=== PATIENT | female | born 1975 | race Caucasian/White ===

== ENCOUNTER 2016-12-09 07:49 | Day surgery (SDC) | payer OTHER ==
[~2016-12-09 07:49] MED LIST: RINGERS SOLUTION,LACTATED 1,000 ML IV PRN
[2016-12-09 08:17] LABS: Hematocrit 37.7 % (37.0-47.0); Hemoglobin 12.4 gm/dL (12.5-16.0); Mean Cell Volume 90.2 fl (78-100); Mean Corpuscular Hemoglobin 29.7 pg (27-31); Mean Corpuscular Hgb Conc 32.9 g/dl (32-36); Neutrophil # 4.2 K/mm3 (1.3-6.0); Neutrophil % 69.9 % (42-75.0); Platelet Count 415 K/mm3 (150-450); Red Blood Count 4.18 M/mm3 (4.2-5.4); Red Cell Distribution Width 12.5 % (11.5-14.0); White Blood Count 6.1 K/mm3 (4.0-10.5)
--- NOTE | 2016-12-09 09:40 | OR ---
Operative Report - Dictated Report Narrative: Operative Report 12/09/2016 Hysteroscopy Dilatation and Curettage Preoperative Diagnosis: Menometrorrhagia Postoperative Diagnosis: Menometrorrhagia Procedure: Hysteroscopy Dilatation and Curettage Surgeon: Kristal Colon M.D. Anesthesia: Phil Henley CRNA, IV sedation Findings: Uterine sound was 8 cm. It was difficult to completely assess the lining of the uterus as she started her period this morning. However, there was no endometrial polyp or submucosal fibroid visualized on the endometrium. Fluids: 200 ml EBL: Minimal Drains: None Complications: None Condition: Stable Pathology: Endometrial curettings Procedure: The patient was taken to the operating room with IV fluids running. She was placed in the dorsal lithotomy position after anesthesia was induced. A bivalve speculum was placed in the vagina. The anterior lip of the cervix was grasped with a single-tooth tenaculum. 2 mm hysteroscope was used to guide down the endocervical canal after uterine sound was not easily passed. The cervix was dilated with Bradley dilators. Uterine sound was passed into the endometrial cavity with ease. Uterine sound was 8 cm. The hysteroscope was introduced into the endometrial cavity. The cavity was distended with normal saline. [place] were visualized bilaterally. The patient started her period today and visualized was decreased but there was no clear evidence of submucosal fibroid or endometrial polyp. The hysteroscope was removed. The cavity was sharply curetted without difficulty. The hysteroscope was once again introduced into the cavity. The cavity was completely curetted. The hysteroscope was removed. The single-tooth tenaculum was removed. Sites were hemostatic. The speculum was removed from the vagina. Sponge counts were correct 2. The patient tolerated the procedure well.
[2016-12-09] MEDS ORDERED: IBUPROFEN 600 MG TABLET PO PRN (09:54)
[2016-12-09] MEDS ORDERED: oxyCODONE HCL/ACETAMINOPHEN 1 TAB TABLET PO PRN (09:55)
[2016-12-09 11:05] VITALS: BP 106/68
== END 2016-12-09 07:50 | disposition home or self-care (01) ==
LOC: AMB 07:49
PROVIDERS: ATTEND Obstetrics & Gynecology
PROC: 0UDB8ZX Extraction of Endometrium, Via Natural or Artificial Opening Endoscopic, Diagnostic (ICD-10-PCS; principal; 2016-12-09 09:00)
DX: N92.1 Excessive and frequent menstruation with irregular cycle (principal); K21.9 Gastro-esophageal reflux disease without esophagitis; Z87.891 Personal history of nicotine dependence; Z68.26 Body mass index [BMI] 26.0-26.9, adult

== ENCOUNTER 2017-02-04 06:49 | Day surgery (SDC) | payer OTHER ==
[~2017-02-04 06:49] MED LIST changes: +CLINDAMYCIN PHOSPHATE 600 MG in DEXTROSE 5 % IN WATER 100 ML IV PRN; +GENTAMICIN SULFATE 100 MG in DEXTROSE 5 % IN WATER 100 ML IV PRN; +ceFAZolin SODIUM 2 GM in DEXTROSE 5 % IN WATER 50 ML IV PRN
[2017-02-04 07:20] LABS: Hematocrit 34.4 % (37.0-47.0); Mean Cell Volume 89.1 fl (78-100); Mean Corpuscular Hemoglobin 28.5 pg (27-31); Mean Platelet Volume 8.7 fl (6.0-9.5); Neutrophil % 58.5 % (42-75.0); Platelet Count 444 K/mm3 (150-450); Red Blood Count 3.86 M/mm3 (4.2-5.4); Red Cell Distribution Width 13.7 % (11.5-14.0); White Blood Count 3.4 K/mm3 (4.0-10.5)
[2017-02-04] MEDS ORDERED: RINGERS SOLUTION,LACTATED 1,000 ML IV ONE ×3 (07:35→10:38)
[2017-02-04 08:00] LABS: Albumin * 3.7 gm/dl (3.4-5.0); Anion Gap 11.4 mmol/L (6.8-13.8); BUN/Creatinine Ratio 9.1 (9.0-21.6); Bilirubin, Total 0.3 mg/dL (0.0-1.1); Ca. Corrected For Albumin 8.6 mg/dL (8.4-10.2); Calcium * 8.7 mg/dL (7.9-10.9); Carbon Dioxide 28.3 mmol/L (24-32.6); Potassium 3.7 mmol/L (3.4-4.6); Total Protein 7.2 gm/dL (6.2-8.2)
[2017-02-04] MEDS ORDERED: BUPIVACAINE HCL 50 ML VIAL IJ ONE (08:20)
[2017-02-04] MEDS ORDERED: RINGERS SOLUTION,LACTATED 1,000 ML IV PRN (11:44)
[2017-02-04] MEDS ORDERED: IBUPROFEN 800 MG TABLET PO ONE ×3 (11:44→13:30)
[2017-02-04] MEDS ORDERED: HYDROcodone/ACETAMINOPHEN 1 EACH TABLET PO PRN (11:45)
--- NOTE | 2017-02-04 11:57 | OR ---
Operative Report - Dictated Report Narrative: DATE OF PROCEDURE: 02/04/2017 PROCEDURE: 1. Total laparoscopic hysterectomy, bilateral salpingectomy 2. Lysis of adhesion (60 min) 3. Diagnostic cystoscopy. ANESTHESIA: General, endotracheal intubation. PREOPERATIVE DIAGNOSES: 1. Menometrorrhagia 2. Pelvic pain 3. Prior x 2 POSTOPERATIVE DIAGNOSES: 1. Menometrorrhagia 2. Pelvic pain 3. Prior x 2 4. Pelvic adhesions SURGEON: Tammy Weems M.D. QUANTITY SURVEYOR: Bing Cotton FINDINGS: 1. Retroverted uterus, normal size, dense adhesions with bladder at prior c/s area in the lower uterine segment. 2. Evidence of prior tubal ligations, both ovaries and tubes appeared normal. 3. There were dense adhesions in the lower uterine segment with the bladder and the nearby broad ligaments. 4. On cystoscopy, the bladder appeared intact and bilateral ureteral jets were seen. SPECIMENS: Uterus, cervix, and both tubes (removed in one piece) DRAINS: None. URINE OUTPUT: 25 ml BLOOD LOSS: 25 ml INTRAOPARATIVE IV FLUIDS: 1800 ml COMPLICATIONS: None. DESCRIPTION OF PROCEDURE: The patient consented to the operation and was taken to the operating room. She was placed on the operating table supine. SCDs were placed on her lower extremities. General anesthesia was induced. Clindamycin 600 mg and gentamicin (1.5 mg/kg) were given by IV prior to anesthesia induction. She was repositioned in the dorsal lithotomy position. Her right arm was tucked at her side under the drape. Exam under anesthesia revealed a normal retroverted uterus with no adnexal mass. The abdomen was prepped with Chloraprep and the vagina was prepped with Betadine. She was draped in the usual sterile fashion. A time-out procedure was conducted to confirm the correct patient for the correct procedure. After time-out, a Stakr catheter was placed into the bladder. A bivalve speculum was placed into the vagina. The vagina and the cervix were prepped with Betadine one more time. The anterior cervix was grasped with a single-tooth tenaculum. The uterus was sounded to 8 cm. A large VCare uterine manipulator was inserted into the uterine cavity. The balloon was inflated with 5 cc of air. The single-tooth tenaculum was removed. [place] speculum was removed. The upper VCare cup was advanced into the vagina to hug the cervix. The lower VCare cup was advanced into the vagina to align with the upper VCare cup and to provide pneumoperitoneum for the procedure. The lower VCare cup was fastened to the uterine manipulator. The surgeon then changed gloves and attention was paid to the abdomen. A small vertical incision was made at the lower edge of the umbilicus. A Veress needle was inserted into the abdominal cavity. Intraabdominal placement was confirmed with a saline drop test and with low entry pressure of 2 mmHg. The abdomen was insufflated with CO2 gas to an intraabdominal pressure of 15 mmHg. The Veress needle was removed. A 5 mm trocar with the laparoscope was inserted through the umbilicus incision into the abdomen. Intraabdominal placement was confirmed with the laparoscope. Survey of the entry site revealed no trauma to the underlying structures. Survey of the upper abdomen was unremarkable. The patient was then placed in Trendelenburg position. Three 5 mm trocars were placed in the lower abdomen. Both left lower quadrant trocar and right lower quadrant trocars (5 mm) were placed at a place 2 cm above and 2 cm medial to the anterior superior iliac spine to avoid vessels and nerves. A third suprapubic trocar (5 mm) was placed in the midline. All trocars were placed under the direct visualization of the laparoscope. Survey of the pelvis revealed the findings noted above. Attention was now turned to the left side. The left fallopian tube was elevated. The mesosalpinx was divided with the Thunderbeat. The division was carried to the cornual region. The uteroovarian ligament was divided with the Thunderbeat and the division was carried on the broad ligament to the round ligament towards the lower uterine segment. The course of the left ureter was not identified, but believed to be away from the surgical field. The broad ligament incision was into the anterior leaf and the posterior leaf. Anterior leaf of the broad ligament was dissected towards the bladder uterine reflection. The posterior leaf of the broad ligament was dissected towards the uterosacral ligament. Dense adhesions were encountered near the uterine vessel and in the lower uterine segment. These were dissected carefully. The left uterine vessel was isolated and divided with the Thunderbeat. The lower uterine segment was dissected to free the bladder down. There were thick fibrotic tissues over the bladder. The cardinal ligament complex was divided with the Thunderbeat to the level of vaginal cervical junction. Attention was now turned to the right side. The right fallopian tube was elevated. The mesosalpinx was divided with the Thunderbeat. The division was carried to the cornual region. The uteroovarian ligament was divided with the Thunderbeat and the division was carried on the broad ligament to the round ligament towards the lower uterine segment. The course of the right ureter was identified and protected. The broad ligament incision was into the anterior leaf and the posterior leaf. The anterior leaf of the broad ligament was dissected towards the bladder uterine reflection and to meet with the opposite dissection point at the midline. The posterior leaf of the broad ligament was dissected towards the uterosacral ligament. The right uterine vessel was isolated, and divided with the Thunderbeat. The cardinal ligament complex was divided with the Thunderbeat to the level of vaginal cervical junction. The vaginal fornix was seen well through the VCare cup. The Thunderbeat was used to make an anterior colpotomy over the VCare cup groove. Entry into the vagina was without complications. A circumferential incision was made along the vaginal cervical junction using the VCare cup groove as a guide. Bilateral uterosacral ligament was divided. The cervix was completely divided from the vagina. The surgeon moved to the vaginal area to retrieve the specimen. The VCare uterine manipulator was removed. The cervix with the uterus and both tubes were removed through the vagina in one piece. The vagina was packed with 2 moist laps to keep the pneumoperitoneum. The surgeon then changed gloves and attention was paid back to the abdomen. The pelvis was thoroughly irrigated with saline. The vaginal opening was closed with 0 Vicryl Endoknot suture in an interrupted fashion using intracorporeal suturing technique and extracorporeal knot tying. The uterosacral ligament at each side was sutured to the vaginal cuff corner for cuff support. The bladder paritoneum was sutured over the vaginal cuff for adhesion prevention. The pelvis was irrigated with saline. Extra fluid was suctioned out from the abdomen and pelvis. There was hemostasis in all vessel pedicles. The patient was taken out of Trendelenburg Three lower abdominal trocars were removed. The abdomen was deflated. The trocar at the umbilicus was removed with the laparoscope. The skin incision was closed with 4-0 Monocryl suture and was covered with Steri-Strips. The incision was infiltrated with 2 to 3 cc of 0.25% Marcaine for post op pain management. Next, a diagnostic cystoscopy was performed. Vaginal packing was removed and the Stark catheter was removed. A 30-degree cystoscope was introduced through the urethra into the bladder. Exam of the bladder revealed the bladder was intact. There were urine jets coming out from the left as well as the right ureteral orifice, confirming the integrity of ureters. The cystoscope was removed. The Stark catheter was not replaced. The patient tolerated the procedure well. All counts were correct and the patient was taken to the recovery room in stable condition. Tammy Weems MD
[2017-02-04 14:09] VITALS: BP 111/74
== END 2017-02-04 06:50 | disposition home or self-care (01) ==
LOC: AMB 06:49
PROVIDERS: ATTEND Obstetrics & Gynecology
PROC: 0UTC7ZZ Resection of Cervix, Via Natural or Artificial Opening (ICD-10-PCS; 2017-02-04)
PROC: 0UT7FZZ Resection of Bilateral Fallopian Tubes, Via Natural or Artificial Opening With Percutaneous Endoscopic Assistance (ICD-10-PCS; 2017-02-04)
PROC: 0UN44ZZ Release Uterine Supporting Structure, Percutaneous Endoscopic Approach (ICD-10-PCS; 2017-02-04)
PROC: 0UN94ZZ Release Uterus, Percutaneous Endoscopic Approach (ICD-10-PCS; 2017-02-04)
PROC: 0UT9FZZ Resection of Uterus, Via Natural or Artificial Opening With Percutaneous Endoscopic Assistance (ICD-10-PCS; principal; 2017-02-04 08:00)
DX: N72 Inflammatory disease of cervix uteri (principal); N80.0 Endometriosis of uterus; N73.6 Female pelvic peritoneal adhesions (postinfective); N83.8 Other noninflammatory disorders of ovary, fallopian tube and broad ligament; K21.9 Gastro-esophageal reflux disease without esophagitis; N92.1 Excessive and frequent menstruation with irregular cycle; Z87.891 Personal history of nicotine dependence; Z68.26 Body mass index [BMI] 26.0-26.9, adult

== ENCOUNTER 2017-07-20 10:42 | Emergency (ER) | payer OTHER ==
[2017-07-20] MEDS ORDERED: ORPHENADRINE CITRATE 30 MG/ML VIAL IM ONE (11:14)
[2017-07-20] MEDS ORDERED: KETOROLAC TROMETHAMINE 60 MG/2 ML VIAL IM ONE ×2 (11:14→11:30)
--- NOTE | 2017-07-20 11:18 | ERNOTE ---
Back Pain ER HPI Date of Service: 07/20/17 Presenting Symptoms: injury/pain to back, hx chronic back pain Time Seen by Provider: 07/20/17 11:06 Source: patient Exam Limitations: no limitations Immunizations: IMMUNIZATION HX Immunizations Up to Date Yes History of Influenza Vaccine No Hx Pneumococcal Vaccination No Allergies/Adverse Reactions: Allergies Penicillins Allergy (Mild, Verified 07/20/17 10:54) Hives Home Medications: HOME MEDICATIONS Pantoprazole Sodium [Protonix] 40 mg PO DAILY 10/10/16 [Last Taken Unknown] Cyclobenzaprine HCl [Flexeril] 10 mg PO TID PRN #30 tab 07/20/17 [Last Taken Unknown] Naproxen [Naprosyn] 500 mg PO BID PRN #60 tab 07/20/17 [Last Taken Unknown] Narrative: Pt. comes in with c/o Upper back pain for four days. Pt. states that she had t7 -10 compression fractures last summer after a fall and the pain from that resolved but then returned four days ago. Pt. denies any recent injury but states that she has to perform heavy lifting daily at work. Pt. denies any SOB , CP, NVD, numbness, tingling, incontinence of bowel or bladder, but states that she took three vicodin over the last four days for the pain and experienced some mild relief but that the pain returned. Review of Systems - Review of Systems Constitutional: Present: no symptoms reported. Absent: recent illness, fever, chills, weakness, fatigue, malaise EYE: Present: no symptoms reported ENT: Present: no symptoms reported Respiratory: Present: no symptoms reported. Absent: shortness of breath, cough , wheezing Cardiology: Present: no symptoms reported. Absent: chest pain Gastrointestinal/Abdominal: Present: no symptoms reported. Absent: nausea, vomiting, diarrhea, abdominal pain Genitourinary: Present: no symptoms reported. Absent: frequency, decreased urinary output Musculoskeletal: Present: back pain Skin: Present: no symptoms reported. Absent: rash, change in hair/nails Neurological: Present: no symptoms reported. Absent: headache, dizziness/light- headedness, numbness, tingling All Other Systems: All systems neg except as marked - Patient's Past Medical History Patient History - Medical: Anxiety, GERD Patient History - Cardiac/Respiratory: No pertinent hx Patient History - Cancer: Kidney Patient History - Surgical Procedures: , D & C, Tubal Ligation, T & A Patient History - Other: None - Family History Mother Family History - Medical: , Other Family History - Cardiac/Respiratory: No pertinent hx Family History - Cancer: No pertinent family hx Father Family History - Medical: No pertinent hx Family History - Cardiac/Respiratory: Hypertension, Hyperlipidemia Family History - Cancer: No pertinent family hx - Social History Living Situations: home Abuse History: No History of abuse Psych History: No pertinent hx Smoking Status: Never smoker Alcohol Use: none Drug Use: none - Immunizations Immunizations Up to Date: Yes Hx Pneumococcal Vaccination: No History of Influenza Vaccine: No Physical Exam - Physical Exam General Appearance: Present: wd/wn, alert, no apparent distress Head Exam: Present: normal inspection, no evidence of injury Eye Exam: Normal inspection: bilateral Neck: Present: normal inspection, nontender Respiratory: Present: no respiratory distress, normal breath sounds, no accessory muscle use, chest nontender, lungs clear Cardiovascular/Chest: Present: regular rate, rhythm, no murmur, normal peripheral pulses Gastrointestinal/Abdominal: Present: normal bowel sounds, nontender Back Exam: Present: no CVA tenderness, vertebral tenderness - T7-10 with paraspinous muscle spasm, decreased range of motion - frextion and rotation, muscle spasm Extremity Exam: Present: normal inspection, non-tender, normal range of motion, no edema Neurological Exam: Present: alert, oriented, normal mood/affect, no motor/ sensory deficits Skin Exam: Present: normal color, warm/dry. Absent: pallor, skin rash ED Progress - Vital Signs Patient's Vital Signs:: I have reviewed the patient's vital signs. Vital Signs: Vital Signs 07/20/17 10:46 Temperature 37.4 C Pulse Rate 83 Respiratory 16 Rate Blood Pressure 129/87 O2 Sat by Pulse 100 Oximetry - X-Ray X-Ray #1 X-Ray: thoracic Interpretation: Reviewed by me X-ray Comments: T6,7,8 endplate compression deformities overall stable from previous in jul of last year. - Progress/Reassessment Chief Complaint: Back Pain Progress:: Improved Departure Clinical Impression: Compression fracture - Departure Disposition: Home self-care Condition: Good Instructions: Spinal Compression Fracture, Form - Excuse from Work, School, or Physical Activity Additional Instructions: Please follow up with primary provider in 2-3 days. Referrals: Micaela Jj FNP [Primary Care Provider] - Prescriptions: Cyclobenzaprine HCl [Flexeril] 10 mg PO TID PRN #30 tab PRN Reason: MUSCLE SPASMS Naproxen [Naprosyn] 500 mg PO BID PRN #60 tab PRN Reason: Pain
[2017-07-20] MEDS ORDERED: ORPHENADRINE CITRATE 30 MG/ML VIAL ONE (11:30)
[2017-07-20 12:09] VITALS: BP 118/86
== END 2017-07-20 12:08 | disposition home or self-care (01) ==
LOC: ER 10:42
DX: M48.54XS Collapsed vertebra, not elsewhere classified, thoracic region, sequela of fracture (principal); K21.9 Gastro-esophageal reflux disease without esophagitis; Z85.528 Personal history of other malignant neoplasm of kidney